=== PATIENT | female | born 1975 | race Caucasian/White ===

== ENCOUNTER 2021-06-01 12:48 | Outpatient (CLI) | payer OTHER, SELFPAY ==
[2021-06-01 13:11] LABS: Hematocrit 36.8 % (37.0-47.0); Hemoglobin 12.3 g/dL (12.0-15.0)
== END 2021-06-01 12:49 | disposition home or self-care (01) ==
LOC: ANHSURGERY 12:53
PROVIDERS: Anesthesiology; PCP Family Medicine Sports Medicine; Visit Provider Obstetrics & Gynecology Gynecology
DX: Z01.818 Encounter for other preprocedural examination (principal); D64.9 Anemia, unspecified
CPT/HCPCS: 36415; 85014; 85018

== ENCOUNTER 2021-06-12 01:08 | Day surgery (SDC) | payer OTHER, SELFPAY ==
[2021-05-31 12:20] VITALS: BMI 28.3
--- NOTE | 2021-05-31 12:31 | PC.NURSE ---
Report to the Outpatient Waiting Room, entrance under the green pavilion located off [facility], at time 9:15 on date 06/12/21. OR Time: 11:15. - You and your visitor will be asked a series of questions to screen for COVID 19 for your protection. - A mask is required within the hospital. - Only one visitor is allowed at this time. Patient visitors will be guided where to wait when not with patient. Preoperative COVID Testing Requirements: No COVID Test needed if: (proof is required; if not received patient will have Rapid Test prior to entry) - Patient has received COVID Vaccine at least 14 days prior to procedure date or - Patient has positive COVID test result within last 90 days of surgery date. COVID Test needed if above criteria is not met If not COVID vaccinated a COVID test must be conducted within 72 hours of surgery and patient is asked to isolate self from time of testing until procedure. You will go to the [facility] for your COVID testing. The [facility] is located at the corner of [address] [facility]. You will only be called if COVID results are positive and your surgeon may reschedule your elective surgery date. Patients may have clear liquids (water, carbonated beverages, clear teas, apple juice) until 3 hours prior to surgery with a maximum of 20 ounces. - No food from midnight until time of surgery - Infants may have breast milk until 4 hours before surgery, infant formula 6 hours prior to surgery. - Children will be allowed to drink immediately following surgery. If applicable, please bring a bottle or sippy cup to assist with drinking. Juice, water, soda, and popsicles are readily available. For infants on formula, please bring formula the day of surgery. Pacifiers are allowed. Take the following medications with a SIP of water the morning of surgery: ALPRAZOLAM (IF NEEDED), MERCAPTOPURINE, ABILIFY, ZOLOFT Medications to discontinue per physician: VITAMINS/SUPPLEMENTS Date to take last dose: 06/08/21 Please no make-up, nail tamazight, hairspray, perfume, deodorant, or body powder the day of surgery. No jewelry (including any body piercings) or valuables the day of surgery, leave them at home. Please take a shower or bath the night before, or the morning of, surgery with an antibacterial soap. Wear comfortable, loose fitting clothing. Children are encouraged to wear pajamas. - Jewelry must be removed prior to entering the operating room. Rings and piercings that are not removed may be cut off. - The hospital will not accept responsibility for valuables. - Please leave all valuables, including medications, at home the day of surgery. If you are going home after surgery, a licensed company driver must drive you home. - NO public transportation without another adult. - We recommend that an adult stay with you for 24 hours following discharge. - We also recommend that you do not drive, make important decision, drink alcoholic beverages, or take any drugs that were not prescribed by your health care provider for at least 24 hours after your discharge time. For Pediatric surgeries, we recommend two adults accompany the child home (only one inside the building at this time). Follow any additional instructions given to you from your surgeon. Telephone instructions given to ABEL SMITH and asked if any additional questions and then verbalized understanding. Patient advised to call surgeon office or pre surgery nurse liaison [phone] if any additional questions.
--- NOTE | 2021-06-12 07:29 | WPDHPUPDATE1 ---
History and Physical Update Update Date/Time: 06/12/21 07:29 History and Physical has been reviewed, including an updated exam of the patient. There are NO changes in the patient's condition. Risks, benefits, and alternatives have been discussed and questions answered. Patient agrees to proceed with procedure.
--- NOTE | 2021-06-12 07:30 | P.HP_ITS ---
History of Present Illness History of Present Illness Consent: Risks, benefits, and alternatives have been discussed and questions answered. Patient agrees to proceed with procedure. Chief complaint: Metrorrhagia Narrative: Marsha Peñaloza is a 45 year old female with heavy and frequent cycles. It was recommended to proceed with hysteroscopy D&C. Risks of infection, bleeding, perforation, and possible pathology were reviewed. Patient voiced understanding and agrees to proceed. Review of Systems Gastrointestinal: Gastrointestinal: Reports abdominal pain (Secondary to Crohn's disease) [facility] Past Medical History Medical History (Updated 06/12/21 @ 07:33 by Dora Ferguson MD) Anxiety Crohn's disease Depression (normal spontaneous vaginal delivery) X2 Surgical History Surgical History (Updated 06/12/21 @ 07:32 by Dora Ferguson MD) History of bowel resection 1995, 2005 Status post breast reduction Social History Social History Smoking packs per day: 1 Smoking cigarettes per day: 20.0 Years smoked: 20 Smoking pack-years: 20.00 Smoking status: Current every day smoker Tobacco type: cigarettes Alcohol intake: never Substance use: never Substance use type: does not use Living arrangements: with family Spiritual care concerns: No Meds Home Medications and Allergies Home Medications Medication Instructions Recorded Confirmed Type alprazolam 0.5 mg PO TID PRN 05/31/21 05/31/21 History aripiprazole [Abilify] 5 mg PO DAILY 05/31/21 05/31/21 History ferrous sulfate [Iron (ferrous 325 mg PO DAILY 05/31/21 05/31/21 History sulfate)] mercaptopurine 100 mg PO DAILY 05/31/21 05/31/21 History omeprazole 40 mg PO DAILY 05/31/21 05/31/21 History sertraline [Zoloft] 100 mg PO DAILY 05/31/21 05/31/21 History bupropion HCl 100 mg PO BID 06/01/21 06/01/21 History Allergies Allergy/AdvReac Type Severity Reaction Status Date / Time Sulfa (Sulfonamide Allergy Severe Rash Verified 05/31/21 12:18 Antibiotics) Exam 2 Const: General: healthy appearing and alert Orientation/consciousness: patient oriented x3 GI: GI Palp: Yes Soft to palpation, No Tenderness to palpation present (GI) and No Palpable mass present : External Female Exam: normal external appearance Speculum Exam - Vagina: normal appearance of the vagina and normal vaginal discharge Speculum Exam - Cervix: normal appearance of the cervix Bimanual exam- vagina & uterus: uterine size normal and consistency normal Bimanual Exam- Adnexa, other: normal adnexae and No adnexal tenderness Neuro: General: patient oriented x3 Assessment and Plan Assessment and plan (1) Menorrhagia: Code(s): N92.0 - Excessive and frequent menstruation with regular cycle Status: Acute Assessment and Plan: Plan to proceed with D&C hysteroscopy
[2021-06-12 10:02] VITALS: BP 106/39; PULSE 75; RESP 16; TEMP 37.5; O2SAT 100; BMI 28.3
[2021-06-12] MEDS: ACETAMINOPHEN 500 MG TABLET 1000 MG PO (10:10)
--- NOTE | 2021-06-12 10:11 | P.PNAN_ITS ---
Anes - Initial Pre Proc Eval Procedure: Operation Date: 06/12/21 11:15 Proposed Procedures p Hysteroscopy, Dilation and Curettage - Dora Ferguson MD Date/Time: 06/12/21 10:11 Surgeon: Dora Ferguson MD Pre Op Diagnosis: Metrorrhagia Patient Data Age: 45 Gender: F Height: 1.63 m Weight: 75 kg Last Vital Signs Temp 37.5 C 06/12/21 10:02 Pulse 75 06/12/21 10:02 Resp 16 06/12/21 10:02 BP 106/39 L 06/12/21 10:02 Pulse Ox 100 06/12/21 10:02 Allergies Allergy/AdvReac Type Severity Reaction Status Date / Time Sulfa (Sulfonamide Allergy Severe Rash Verified 06/12/21 10:03 Antibiotics) Home Medications Medication Instructions Recorded Confirmed Type alprazolam 0.5 mg PO TID PRN 05/31/21 06/12/21 History aripiprazole [Abilify] 5 mg PO DAILY 05/31/21 06/12/21 History ferrous sulfate [Iron (ferrous 325 mg PO DAILY 05/31/21 06/12/21 History sulfate)] mercaptopurine 100 mg PO DAILY 05/31/21 06/12/21 History omeprazole 40 mg PO DAILY 05/31/21 06/12/21 History sertraline [Zoloft] 100 mg PO DAILY 05/31/21 06/12/21 History bupropion HCl 100 mg PO BID 06/01/21 06/12/21 History Patient hx anesthesia problems: none Family hx anesthesia problems: none Results Review: All pre-operative results and documents have been reviewed as part of the pre-operative evaluation. [facility] Past Medical History Medical History Anxiety Crohn's disease Depression (normal spontaneous vaginal delivery) X2 Surgical History Surgical History History of bowel resection 1995, 2005 Status post breast reduction Social History Social History Smoking packs per day: 1 Smoking cigarettes per day: 20.0 Years smoked: 20 Smoking pack-years: 20.00 Smoking status: Current every day smoker Tobacco type: cigarettes Alcohol intake: never Substance use: never Substance use type: does not use Living arrangements: with family Spiritual care concerns: No Anes - Eval Final PreProcedure Day of Procedure 06/12/21 10:11 Patient weight: overweight Heart: regular rate and rhythm Lungs: decreased breath sounds Airway: Mallampati scale class II Neurological: alert and oriented Last oral intake: >/= 8 hours ASA classification: III Emergent: no Anesthetic plan: proceed Anesthesia type and monitoring: general GIVS and standard monitoring Results Review: All pre-operative results and documents have been reviewed as part of the pre-operative evaluation. Informed Consent: The patient's anesthetic plan and its attendant risks and benefits were discussed with the patient/family/POA. Questions were solicited and answers provided to the satisfaction of the patient/family/POA.
[2021-06-12] MEDS: LACTATED RINGERS 1,000 ML 30 ML IV CONT (10:21)
[2021-06-12] MEDS: KETOROLAC 30 MG/ML VIAL (*BKC) IV PUSH (11:32)
--- NOTE | 2021-06-12 11:38 | W.PM.PROC2 ---
Procedure Note - Detailed Date of Procedure 06/12/21 Pre-op Diagnosis Metrorrhagia Post-op Diagnosis same Procedure Performed D&C hysteroscopy with MyoSure resection of polyp Surgeon Dora Ferguson MD Anesthesia MAC and local Findings Uterus sounds to 9cm. There is a large polyp across the fundus. The remainder of the endometrium appears grossly normal. Description of Procedure The patient was taken to the operating room and placed under anesthesia in the dorsal lithotomy position. She was prepped and draped in the usual sterile fashion. [place] speculum was placed in the vagina and the cervix is grasped on the anterior lip with a tenaculum. The uterus is sounded to 9cm and the cervix is serially dilated with [place] to an 8. The diagnostic hysteroscope was placed with the above-stated findings. The MyoSure device is opened and placed. Under direct visualization the polyp was removed in its entirety. The MyoSure device is removed and the medium sharp curette used to curette the endometrium until a good uterine cry was noted in all areas. All instruments were then removed and the patient was awakened from anesthesia and taken to recovery in stable condition. Sponge, needle, and instrument counts are correct per the OR staff. Estimated Blood Loss 5 Drains No Packing No Pathology yes (Endometrial shavings and curettings) Complications No immediate complications Condition stable Disposition PACU
[2021-06-12 11:40] VITALS: BP 104/57; PULSE 93; RESP 18; O2SAT 93
[2021-06-12 12:10] VITALS: BP 99/45; PULSE 78
[2021-06-12 12:35] VITALS: BP 103/50; PULSE 76
== END 2021-06-12 12:45 | disposition home or self-care (01) ==
PROVIDERS: PCP Family Medicine Sports Medicine; Visit Provider Obstetrics & Gynecology Gynecology
PROC: 0U5B8ZZ Destruction of Endometrium, Via Natural or Artificial Opening Endoscopic (ICD-10-PCS; CPT 58563; principal; 2021-06-12 11:15)
DX: N92.0 Excessive and frequent menstruation with regular cycle (principal); N84.0 Polyp of corpus uteri; K50.90 Crohn's disease, unspecified, without complications; F41.8 Other specified anxiety disorders; F17.210 Nicotine dependence, cigarettes, uncomplicated
CPT/HCPCS: 58558; 36415; 85014; 85018; 88305; A9270; J1100; J1885; J2250; J2405; J2704; J3010; J7030; J7120